=== PATIENT | male | born 1995 | race Caucasian/White ===

== ENCOUNTER 2017-01-17 15:15 | Emergency (ER) | payer BC, OTHER ==
[2017-01-17 15:21] VITALS: BP 136/77
--- NOTE | 2017-01-17 15:28 | EDM.PDOC ---
ED HPI Trauma - General Chief Complaint: Lower Extremity Injury/Pain Stated Complaint: KNEE PAIN Time Seen by Provider: 01/17/17 15:28 Source: Reports: Patient History Limitations: Reports: No limitations - History of Present Illness INITIAL COMMENTS - FREE TEXT/NARRATIVE: History and physical: History of present illness: [Patient comes to the emergency room complaining of right knee pain for the past 3-4 days. 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 he has no previous injury or trauma to his leg. No previous surgeries to his right leg. He hasn't had any twisting injuries that he can remember. He has pain over the superior aspect of his right patella has not noticed any bruising warmth or swelling. No fever or chills. No radiation of pain up or down his legs. He took a couple of ibuprofen at home without improvement in his symptoms. Denies pain to his left leg and knee.. ] Review of Systems: As per history of present illness and below otherwise all systems reviewed and negative. Past medical history: As per history of present illness and as reviewed below otherwise noncontributory. Surgical history: As per history of present illness and is reviewed below other monge noncontributory. Social history: No reported history of drug or alcohol abuse. Family history: As per history of present illness and is reviewed below otherwise noncontributory. Physical exam: HEENT: Atraumatic, normocephalic. Lungs: Clear to auscultation, breath sounds equal bilaterally. No wheezing crackles or rales.. Heart: S1-S2, regular rate and rhythm. Abdomen: Soft, nondistended, nontender. Negative for masses or hepatosplenomegaly. Negative for costovertebral tenderness. Extremities: atraumatic in appearance. he is tender with palpation over thesuperior aspect of his patella. No effusions or swelling is appreciated. No ecchymosis or erythema. negative for cords or calf pain. Neurovascular unremarkable. He has full range of motion. He limps favoring his right leg when he walks. Neuro: Awake, alert, oriented. Motor and sensory unremarkable throughout. Exam nonfocal. Diagnostics: [Right knee x-ray ] Therapeutics: [Toradol 60mg IM] Impression: [Right knee pain ] Plan: [Right knee x-ray appears unremarkable. Awaiting radiologist's report. Discussed with patient that his pain could be related to a muscle strain or sprain and that [id number] analgesics will help. Recommend ice and rest. Elevation as tolerated. Note written excusing from work tomorrow. He should followup with a primary care provider in the next couple of days to determine what next steps need to be taken if his symptoms fail to improve. he is in agreement with today's plan. All of his questions are answered and concerns are addressed.] Definitive disposition and diagnosis is appropriate pending reevaluation and review of above. Allergies/ADRs: Allergies No Known Allergies Allergy (Verified 01/17/17 15:21) Home Medications: Ambulatory Orders Naproxen Sodium [Aleve] 220 mg PO BID PRN 01/17/17 [Confirmed 01/17/17] Past Medical History - Past Health History Medical/Surgical History: Denies Medical/Surgical History Social & Family History - Tobacco Use Smoking Status *Q: Never Smoker Second Hand Smoke Exposure: No - Recreational Drug Use Recreational Drug Use: No Review of Systems - Review of Systems Review Of Systems: ROS reveals no pertinent complaints other than HPI. Trauma Exam - Physical Exam Exam: See Below Course - Vital Signs Last Recorded V/S: Last Vital Signs Temp 98.3 F 01/17/17 15:16 Pulse 90 01/17/17 15:16 Resp 16 01/17/17 15:16 BP 136/77 01/17/17 15:16 Pulse Ox 98 01/17/17 15:16 - Orders/Labs/Meds Orders: Active Orders 24 hr Category Date Time Status Knee 3V Rt [CR] Stat Exams 01/17/17 15:40 Taken Meds: Medications Discontinued Medications Generic Name Dose Route Start Last Admin Trade Name Freq PRN Reason Stop Dose Admin Ketorolac Tromethamine 60 mg 01/17/17 15:59 01/17/17 16:05 Toradol IM 01/17/17 16:00 60 mg ONETIME ONE Administration Departure - Departure Time of Disposition: 16:10 Disposition: Home, Self-Care 01 Condition: good Clinical Impression: Right knee pain Qualifiers: Chronicity: acute Qualified Code(s): M25.561 - Pain in right knee Referrals: Provider,Unknown [Primary Care Provider] - Forms: ED Department Discharge Additional Instructions: The following information is given to patients seen in the emergency department who are being discharged home. This information is to outline your options for follow-up care and provides all patient seen in our emergency department with a follow-up referral. The need for follow-up, as well as the timing and circumstances, are variable depending upon the specifics of each emergency department visit. If you don't have a primary care physician on staff, we will provide you with a referral. We always advise to contact your personal physician following an emergency department visit to inform them of the circumstances of the visit and for follow-up with them and/or the need for any referrals to a consulting specialist. The emergency department will also refer you to a specialist when appropriate. This referral assures that you have the opportunity for follow-up care with a specialist. All of these measures are taken in an effort to provide you with optimal care, which includes your follow-up. Under all circumstances we always encourage you to contact your private physician who remains a resource for coordinating your care. When calling for follow-up care, please make the office aware that this follow-up is from your recent emergency room visit. If for any reason you are refused follow-up please contact the [facility] emergency department at and ask to speak to the emergency department nurse. [facility] [address] [place] [address] Followup with your local primary care provider or at the clinic listed above in 48-72 hours. You may need to see an orthopedist Recommend ice packs and rest your knee. You may alternate 2 tablets of Tylenol with ibuprofen 3-4 tablets every 6-8 hours as needed for pain. Ibuprofen can be hard on the stomach it is recommended that you take it with food. Return to ER as needed as discussed. - My Orders Last 24 Hours: My Active Orders 01/17/17 15:40 Knee 3V Rt [CR] Stat - Assessment/Plan Last 24 Hours: My Active Orders 01/17/17 15:40 Knee 3V Rt [CR] Stat
[2017-01-17] MEDS ORDERED: Ketorolac 60 MG/2 ML SDV IM ONE (15:59)
== END 2017-01-17 16:18 | disposition home or self-care (01) ==
LOC: CC.ED 15:15
DX: M25.561 Pain in right knee (principal)
CPT/HCPCS: 73562; 96372; 99283; J1885

== ENCOUNTER 2020-04-03 23:26 | Emergency (ER) | payer BC, OTHER ==
[2020-04-03 23:45] VITALS: BP 142/80; PULSE 80
--- NOTE | 2020-04-03 23:53 | EDM.PDOC ---
ED HPI GENERAL MEDICAL PROBLEM - General Chief Complaint: General Stated Complaint: throat swelling Time Seen by Provider: 04/03/20 23:52 Source of Information: Reports: Patient History Limitations: Reports: No Limitations - History of Present Illness INITIAL COMMENTS - FREE TEXT/NARRATIVE: Jaylon is a 24 yo male who presents to the ED with c/o feeling like his throat is swollen. He reports this has been ongoing for the past 4-5 days. Was in to see Katharina NEVES in the clinic 2 days ago and was started on amoxicillin for tonsillitis. He reports no improvement in symptoms. Denies any fever, chills, malaise, nasal congestion, nasal drainage, cough, shortness of breath, N/V/D. Reports it feels as though it is hard to swallow and something is stuck in his throat. He feels like his throat is closing, making it difficult to breathe. Denies any abdominal pain. No known history of GERD. No other complaints. Onset: Gradual Onset Date: 03/30/20 Duration: Constant Location: Reports: Neck Severity: Mild Improves with: Reports: None Worsens with: Reports: None Associated Symptoms: Reports: No Other Symptoms. Denies: Confusion, Chest Pain, Cough, cough w sputum, Diaphoresis, Fever/Chills, Headaches, Loss of Appetite, Malaise, Nausea/Vomiting, Rash, Seizure, Shortness of Breath, Syncope, Weakness Treatments [employer]: Reports: Other (see below) (Amoxicillin) Throat Pain Score (Numeric/FACES): 3 - Related Data Allergies Allergy/AdvReac Type Severity Reaction Status Date / Time No Known Allergies Allergy Verified 04/03/20 23:27 Home Meds: Home Meds Amoxicillin [Amoxil] 875 mg PO Q12HR 04/03/20 [History] Pantoprazole Sodium [Protonix] 40 mg PO DAILY #30 tablet. 04/04/20 [Rx] Past Medical History - Past Health History Medical/Surgical History: Denies Medical/Surgical History Social & Family History - Family History Family Medical History: Noncontributory - Tobacco Use Smoking Status *Q: Never Smoker - Caffeine Use Caffeine Use: Reports: Energy Drinks Caffeine Use Comment: drinks one enegy drink every am ED ROS GENERAL - Review of Systems Review Of Systems: Comprehensive ROS is negative, except as noted in HPI. ED EXAM, GENERAL - Physical Exam Exam: See Below Exam Limited By: No Limitations General Appearance: Alert, WD/WN, No Apparent Distress Eye Exam: Bilateral Eye: EOMI, Normal Fundi, Normal Inspection, PERRL Ears: Normal External Exam, Normal Canal, Hearing Grossly Normal, Normal TMs Nose: Normal Inspection, Normal Mucosa, No Blood Throat/Mouth: Normal Inspection, Normal Lips, Normal Teeth, Normal Gums, Normal Oropharynx, Normal Voice, No Airway Compromise Head: Atraumatic, Normocephalic Neck: Normal Inspection, Supple, Non-Tender, Full Range of Motion Respiratory/Chest: No Respiratory Distress, Lungs Clear, Normal Breath Sounds, No Accessory Muscle Use, Chest Non-Tender Cardiovascular: Normal Peripheral Pulses, Regular Rate, Rhythm, No Edema, No Gallop, No JVD, No Murmur, No Rub GI/Abdominal: Normal Bowel Sounds, Soft, Non-Tender, No Organomegaly, No Distention, No Abnormal Bruit, No Mass Back Exam: Normal Inspection, Full Range of Motion, NT Extremities: Normal Inspection, Normal Range of Motion, Non-Tender, Normal Capillary Refill, No Pedal Edema Neurological: Alert, Oriented, CN II-XII Intact, Normal Cognition, Normal Gait, Normal Reflexes, No Motor/Sensory Deficits Psychiatric: Normal Affect, Normal Mood Skin Exam: Warm, Dry, Intact, Normal Color, No Rash Course - Vital Signs Last Recorded V/S: Last Vital Signs Temp 98.7 F 04/03/20 23:33 Pulse 80 04/03/20 23:33 Resp 18 04/03/20 23:33 BP 142/80 H 04/03/20 23:33 Pulse Ox 98 04/03/20 23:33 - Orders/Labs/Meds Labs: Laboratory Tests 04/03/20 Range/Units 23:56 SARS-CoV-2 RNA (RT-PCR) Negative (NEGATIVE) Meds: Medications Discontinued Medications Generic Name Dose Route Start Last Admin Trade Name Freq PRN Reason Stop Dose Admin Pantoprazole Sodium 40 mg 04/04/20 00:07 04/04/20 00:15 Protonix PO 04/04/20 00:08 40 mg STAT STA Administration Departure - Departure Time of Disposition: 00:06 Disposition: Home, Self-Care 01 Condition: Good Clinical Impression: GERD (gastroesophageal reflux disease) Qualifiers: Esophagitis presence: esophagitis presence not specified Qualified Code(s): K21.9 - Gastro-esophageal reflux disease without esophagitis - Discharge Information *PRESCRIPTION DRUG MONITORING PROGRAM REVIEWED*: Not Applicable *COPY OF PRESCRIPTION DRUG MONITORING REPORT IN PATIENT BIANKA: Not Applicable Prescriptions: Pantoprazole Sodium [Protonix] 40 mg PO DAILY #30 tablet. Instructions: Gastroesophageal Reflux Disease, Adult, [id number] Referrals: PCP,None [Primary Care Provider] - Forms: ED Department Discharge Additional Instructions: - Strep and COVID 19 negative - Recommend course of Protonix to see if this alleviates globus sensation - Start Protonix daily - Try to refrain from ibuprofen use - Avoid alcohol, spicy/greasy foods, and caffeine as able - Follow up for recheck if symptoms worsen or do not improve with medication Sepsis Event Note (ED) - Evaluation Sepsis Screening Result: No Definite Risk - Problem List & Annotations (1) Globus sensation SNOMED Code(s): 734561450 Code(s): R09.89 - OTH SYMPTOMS AND SIGNS INVOLVING THE CIRC AND RESP SYSTEMS Status: Acute (2) GERD (gastroesophageal reflux disease) SNOMED Code(s): 477065431 Code(s): K21.9 - GASTRO-ESOPHAGEAL REFLUX DISEASE WITHOUT ESOPHAGITIS Status: Acute Qualifiers: Esophagitis presence: esophagitis presence not specified Qualified Code(s): K21.9 - Gastro-esophageal reflux disease without esophagitis - Assessment/Plan Assessment:: GERD Globus Sensation Plan: 24 yo male presents to ED with c/o feeling like his throat is swelling. Was seen in clinic 2 days prior and started on antibiotics for tonsillitis. Reports no improvement in symptoms and persistent sensation that something is in throat. No known history of GERD. Exam WNL. Patient does have enlarged tonsils, but no erythema or exudate. Breathing without difficulty. Strep and COVID 19 negative. Discussed globus sensation with patient. Will treat for GERD and see if symptoms improve. He is advised to start Protonix daily. Did discuss that it may take a few days before he will notice improvement. He is advised to follow up with his PCP for recheck if symptoms worsen or do not improve. Discussed dietary recommendations for GERD and refraining from NSAID use. Patient discharged from facility in satisfactory condition. Return to ED for emergent needs.
[2020-04-04] MEDS ORDERED: Pantoprazole 40 MG Tab.CR PO STA (00:07)
== END 2020-04-04 00:25 | disposition home or self-care (01) ==
LOC: CC.ED 23:26
DX: K21.9 Gastro-esophageal reflux disease without esophagitis (principal); Z20.828 Contact with and (suspected) exposure to other viral communicable diseases; Z79.899 Other long term (current) drug therapy
CPT/HCPCS: 87430; 99284; A9270-GY; U0002

== ENCOUNTER 2021-02-14 08:32 | Emergency (ER) | payer BC ==
[2021-02-14 08:36] VITALS: BP 152/85; PULSE 80
[2021-02-14 09:25] LABS: CHLORIDE,CL 106 mEq/L (98-106); SODIUM,NA 141 mEq/L (136-145)
--- NOTE | 2021-02-14 09:28 | EDM.PDOC ---
ED HPI GENERAL MEDICAL PROBLEM - General Chief Complaint: General Stated Complaint: Dizziness Time Seen by Provider: 02/14/21 08:50 Source of Information: Reports: Patient History Limitations: Reports: No Limitations - History of Present Illness INITIAL COMMENTS - FREE TEXT/NARRATIVE: Jaylon is a 25 yo male who presents to the ED with c/o not feeling well. He reports starting yesterday evening he has felt dizzy, nauseated, headache and some left upper and lower extremity numbness. Also reports some midepigastric abdominal pain. Describes the dizziness as lightheaded. Reports when he stands he feels like he's going to pass out. Reports he has been eating and drinking without difficulty. Did get the Jonasen covid vaccination on Wednesday, so is anxious regarding this. Onset Date: 02/13/21 Duration: Intermittent Location: Reports: Generalized Associated Symptoms: Reports: Headaches, Malaise, Nausea/Vomiting (nausea, no vomiting). Denies: Confusion, Chest Pain, Cough, cough w sputum, Diaphoresis, Fever/Chills, Loss of Appetite, Weakness - Related Data Allergies Allergy/AdvReac Type Severity Reaction Status Date / Time No Known Allergies Allergy Verified 02/14/21 08:33 Home Meds: Home Meds . [No Known Home Meds] 02/14/21 [History] Past Medical History - Past Health History Medical/Surgical History: Denies Medical/Surgical History Social & Family History - Family History Family Medical History: No Pertinent Family History - Tobacco Use Tobacco Use Status *Q: Never Tobacco User Second Hand Smoke Exposure: No - Caffeine Use Caffeine Use: Reports: Coffee Caffeine Use Comment: drinks one enegy drink every am - Recreational Drug Use Recreational Drug Use: No ED ROS GENERAL - Review of Systems Review Of Systems: Comprehensive ROS is negative, except as noted in HPI. ED EXAM, GENERAL - Physical Exam Exam: See Below Exam Limited By: No Limitations General Appearance: Alert, WD/WN, No Apparent Distress, Anxious Eye Exam: Bilateral Eye: EOMI, Normal Fundi, Normal Inspection, PERRL Throat/Mouth: Normal Inspection, Normal Lips, Normal Teeth, Normal Gums, Normal Oropharynx, Normal Voice, No Airway Compromise Head: Atraumatic, Normocephalic Neck: Normal Inspection, Supple, Non-Tender, Full Range of Motion Respiratory/Chest: No Respiratory Distress, Lungs Clear, Normal Breath Sounds, No Accessory Muscle Use, Chest Non-Tender Cardiovascular: Normal Peripheral Pulses, Regular Rate, Rhythm, No Edema, No Gallop, No JVD, No Murmur, No Rub GI/Abdominal: Normal Bowel Sounds, Soft, Non-Tender, No Organomegaly, No Distention, No Abnormal Bruit, No Mass Back Exam: Normal Inspection, Full Range of Motion, NT Extremities: Normal Inspection, Normal Range of Motion, Non-Tender, Normal Capillary Refill, No Pedal Edema Neurological: Alert, Oriented, Normal Cognition, Normal Gait, No Motor/Sensory Deficits, Other (reports numbness with sharp touch to LUE & LLE) Psychiatric: Anxious Skin Exam: Warm, Dry, Intact, Normal Color, No Rash Course - Vital Signs Last Recorded V/S: Last Vital Signs Temp 97.4 F 02/14/21 08:34 Pulse 80 02/14/21 08:34 Resp 16 02/14/21 08:34 BP 152/85 H 02/14/21 08:34 Pulse Ox 97 02/14/21 08:34 - Orders/Labs/Meds Orders: Active Orders 24 hr Category Date Time Status Head wo Cont [CT] Stat Exams 02/14/21 09:20 Ordered Labs: Laboratory Tests 02/14/21 02/14/21 02/14/21 Range/Units 08:46 08:46 08:46 WBC 4.6 L (5.0-10.0) 10^3/uL RBC 5.13 (4.50-6.00) 10^6/uL Hgb 15.4 (14.0-18.0) g/dL Hct 45.0 (40.0-54.0) % MCV 87.7 (82.0-94.0) fL MCH 30.0 (27.0-32.0) pg MCHC 34.2 (33.0-38.0) g/dL RDW Coeff of Kimberly 14.9 (11.0-15.0) % Plt Count 198 (150-400) 10^3/uL Neut % (Auto) 41.8 (35-85) % Lymph % (Auto) 42.0 (10-55) % Glascock % (Auto) 14.5 (0-16) % Eos % (Auto) 1.3 (0-5) % Baso % (Auto) 0.4 (0-3) % Neut # (Auto) 1.90 (1.80-7.00) 10^3/uL Lymph # (Auto) 1.91 (1.00-4.80) 10^3/uL Glascock # (Auto) 0.66 (0.00-0.80) 10^3/uL Eos # (Auto) 0.06 (0.00-0.45) 10^3/uL Baso # (Auto) 0.02 10^3/uL D-Dimer, Quantitative 0.19 (0.00-0.50) Sodium 141 (136-145) mEq/L Potassium 4.6 (3.5-5.0) mEq/L Chloride 106 (98-106) mEq/L Carbon Dioxide 26 (21-32) mmol/L BUN 18 (7-18) mg/dL Creatinine 1.1 (0.7-1.3) mg/dL Est Cr Clr Drug Dosing 107.44 mL/min Estimated GFR (MDRD) > 60 (>=60) mL/min Glucose 104 H (75-99) mg/dL Calcium 8.1 L (8.4-10.1) mg/dL Total Bilirubin 0.5 (0.0-1.0) mg/dL AST 23 (15-37) U/L ALT 33 (12-78) U/L Alkaline Phosphatase 59 (46-116) U/L C-Reactive Protein 1.4 H (0.2-0.8) mg/dL Total Protein 7.4 (6.4-8.2) g/dL Albumin 3.5 (3.4-5.0) g/dL Urine Color (YELLOW) Urine Appearance (CLEAR) Urine pH (4.5-8.0) Ur Specific Burnett (1.003-1.020) Urine Protein (NEGATIVE) mg/dL Urine Glucose (UA) (NEGATIVE) mg/dL Urine Ketones (NEGATIVE) mg/dL Urine Occult Blood (NEGATIVE) Urine Nitrite (NEGATIVE) Urine Bilirubin (NEGATIVE) Urine Urobilinogen (0.2-1.0) EU/dL Ur Leukocyte Esterase (NEGATIVE) 02/14/21 Range/Units 08:48 WBC (5.0-10.0) 10^3/uL RBC (4.50-6.00) 10^6/uL Hgb (14.0-18.0) g/dL Hct (40.0-54.0) % MCV (82.0-94.0) fL MCH (27.0-32.0) pg MCHC (33.0-38.0) g/dL RDW Coeff of Kimberly (11.0-15.0) % Plt Count (150-400) 10^3/uL Neut % (Auto) (35-85) % Lymph % (Auto) (10-55) % Glascock % (Auto) (0-16) % Eos % (Auto) (0-5) % Baso % (Auto) (0-3) % Neut # (Auto) (1.80-7.00) 10^3/uL Lymph # (Auto) (1.00-4.80) 10^3/uL Glascock # (Auto) (0.00-0.80) 10^3/uL Eos # (Auto) (0.00-0.45) 10^3/uL Baso # (Auto) 10^3/uL D-Dimer, Quantitative (0.00-0.50) Sodium (136-145) mEq/L Potassium (3.5-5.0) mEq/L Chloride (98-106) mEq/L Carbon Dioxide (21-32) mmol/L BUN (7-18) mg/dL Creatinine (0.7-1.3) mg/dL Est Cr Clr Drug Dosing mL/min Estimated GFR (MDRD) (>=60) mL/min Glucose (75-99) mg/dL Calcium (8.4-10.1) mg/dL Total Bilirubin (0.0-1.0) mg/dL AST (15-37) U/L ALT (12-78) U/L Alkaline Phosphatase (46-116) U/L C-Reactive Protein (0.2-0.8) mg/dL Total Protein (6.4-8.2) g/dL Albumin (3.4-5.0) g/dL Urine Color Yellow (YELLOW) Urine Appearance Clear (CLEAR) Urine pH 6.5 (4.5-8.0) Ur Specific Burnett >= 1.030 H (1.003-1.020) Urine Protein Negative (NEGATIVE) mg/dL Urine Glucose (UA) Negative (NEGATIVE) mg/dL Urine Ketones Negative (NEGATIVE) mg/dL Urine Occult Blood Negative (NEGATIVE) Urine Nitrite Negative (NEGATIVE) Urine Bilirubin Negative (NEGATIVE) Urine Urobilinogen 0.2 (0.2-1.0) EU/dL Ur Leukocyte Esterase Negative (NEGATIVE) Departure - Departure Time of Disposition: 10:20 Disposition: Home, Self-Care 01 Condition: Fair Clinical Impression: Viral illness, Dizziness - Discharge Information *PRESCRIPTION DRUG MONITORING PROGRAM REVIEWED*: Not Applicable *COPY OF PRESCRIPTION DRUG MONITORING REPORT IN PATIENT BIANKA: Not Applicable Instructions: Viral Illness, Adult, Dizziness, [id number] Referrals: PCP,Unknown [Primary Care Provider] - Forms: ED Department Discharge Additional Instructions: - Labs all stable - Head CT negative - Rest and push fluids - Routine symptomatic cares - Recommend follow up with PCP for recheck BP - Follow up if symptoms worsen or do not improve - Return to ED for emergent needs Sepsis Event Note (ED) - Evaluation Sepsis Screening Result: No Definite Risk - Focused Exam Vital Signs: Vital Signs Temp Pulse Resp BP Pulse Ox 02/14/21 08:34 97.4 F 80 16 152/85 H 97 - My Orders Last 24 Hours: My Active Orders 02/14/21 09:20 Head wo Cont [CT] Stat - Assessment/Plan Last 24 Hours: My Active Orders 02/14/21 09:20 Head wo Cont [CT] Stat
== END 2021-02-14 10:43 | disposition home or self-care (01) ==
LOC: CC.ED 08:32
DX: R42 Dizziness and giddiness (principal); B34.9 Viral infection, unspecified
CPT/HCPCS: 36415; 70450; 80053; 81003; 85025; 85379; 86140; 99284-25

== ENCOUNTER 2024-07-12 15:20 | Emergency (ER) | payer OTHER ==
[2024-07-12 15:36] VITALS: BP 176/106; PULSE 96
[2024-07-12 16:15] LABS: BASOPHILS ABSOLUTE AUTO 0.04 10^3/uL (0.00-0.50); BASOPHILS PERCENT AUTO 0.6 % (0-1); EOSINOPHILS ABSOLUTE AUTO 0.04 10^3/uL (0.00-1.50); EOSINOPHILS PERCENT AUTO 0.6 % (0-6); HEMATOCRIT 48.3 % (42.0-52.0); IMMATURE GRAN ABSOLUTE AUTO 0.01 10^3/uL (0.00-0.49); IMMATURE GRAN PERCENT AUTO 0.2 % (0.0-4.9); LYMPHOCYTES ABSOLUTE AUTO 1.18 10^3/uL (0.60-5.00); LYMPHOCYTES PERCENT AUTO 18.4 % (24-44); MEAN CORPUSCULAR HEMOGLOBIN 29.5 pg (27.0-32.0); MEAN CORPUSCULAR HGB CONC 33.1 g/dL (32.0-36.0); MONOCYTES ABSOLUTE AUTO 0.42 10^3/uL (0.00-1.50); MONOCYTES PERCENT AUTO 6.6 % (0-10); NEUTROPHILS ABSOLUTE AUTO 4.72 x10^3/uL (1.80-8.00); NEUTROPHILS PERCENT AUTO 73.6 % (41-71); PLATELET COUNT,PLT 230 10^3/uL (150-400); RED BLOOD CELL COUNT 5.43 x10^6/uL (4.50-6.00); WHITE BLOOD CELL COUNT,WBC 6.4 10^3/uL (4.0-11.0)
[2024-07-12 16:19] LABS: APPEARANCE,URINE CLEAR (CLEAR); BILIRUBIN,URINE NEGATIVE (NEGATIVE); COLOR,URINE YELLOW (YELLOW); GLUCOSE,URINE NEGATIVE (NEGATIVE); KETONES,URINE NEGATIVE (NEGATIVE); LEUKOCYTE ESTERASE,URINE NEGATIVE (NEGATIVE); NITRITE,URINE NEGATIVE (NEGATIVE); OCCULT BLOOD,URINE TRACE-INTACT (NEGATIVE); PROTEIN,URINE NEGATIVE (NEGATIVE); UROBILINOGEN,URINE 0.2 EU/dL (0.2-1.0)
[2024-07-12 16:30] LABS: RBC,URINE NOT SEEN /HPF (0-5); WBC,URINE NOT SEEN /HPF (0-5)
[2024-07-12 16:39] LABS: ALANINE AMINOTRANSFERASE,ALT 34 U/L (12-78); ALBUMIN 4.1 g/dL (3.4-5.0); ALKALINE PHOSPHATASE 62 U/L (46-116); ASPARTATE AMNIOTRANSFERASE,AST 29 U/L (15-37); BILIRUBIN TOTAL 0.8 mg/dL (0.0-1.0); BLOOD UREA NITROGEN,BUN 11 mg/dL (7-18); CALCIUM 9.3 mg/dL (8.4-10.1); CARBON DIOXIDE,CO2 29 mmol/L (21-32); CHLORIDE,CL 104 mEq/L (98-106); CREATININE 1.1 mg/dL (0.7-1.3); EST CRCL DRUG DOSING (CG) 107.78 mL/min; GLUCOSE RANDOM 98 mg/dL (75-99); POTASSIUM,K 4.3 mEq/L (3.5-5.0); PROTEIN TOTAL,TP 7.8 g/dL (6.4-8.2); SODIUM,NA 141 mEq/L (136-145)
[2024-07-12 16:41] LABS: ESTIMATED GFR 93 mL/min (>=60)
== END 2024-07-12 16:50 | disposition home or self-care (01) ==
LOC: CC.ED 15:20
DX: R42 Dizziness and giddiness (principal); I10 Essential (primary) hypertension; F17.210 Nicotine dependence, cigarettes, uncomplicated; Z79.899 Other long term (current) drug therapy
CPT/HCPCS: 36415; 80053; 81001; 83735; 84443; 84484; 85025; 87428-QW; 93005; 93010; 93246; 99284

== ENCOUNTER 2025-05-08 03:42 | Emergency (ER) | payer OTHER ==
[2025-05-08 04:30] LABS: BASOPHILS ABSOLUTE AUTO 0.04 10^3/uL (0.00-0.50); BASOPHILS PERCENT AUTO 0.6 % (0-1); EOSINOPHILS ABSOLUTE AUTO 0.06 10^3/uL (0.00-1.50); EOSINOPHILS PERCENT AUTO 1.0 % (0-6); IMMATURE GRAN ABSOLUTE AUTO 0.01 10^3/uL (0.00-0.49); IMMATURE GRAN PERCENT AUTO 0.2 % (0.0-4.9); LYMPHOCYTES ABSOLUTE AUTO 2.85 10^3/uL (0.60-5.00); LYMPHOCYTES PERCENT AUTO 45.6 % (24-44); MONOCYTES ABSOLUTE AUTO 0.46 10^3/uL (0.00-1.50); MONOCYTES PERCENT AUTO 7.4 % (0-10); NEUTROPHILS ABSOLUTE AUTO 2.83 x10^3/uL (1.80-8.00); NEUTROPHILS PERCENT AUTO 45.2 % (41-71); PLATELET COUNT,PLT 229 10^3/uL (150-400); RED BLOOD CELL COUNT 5.22 x10^6/uL (4.50-6.00); WHITE BLOOD CELL COUNT,WBC 6.3 10^3/uL (4.0-11.0)
[2025-05-08 04:43] LABS: ALANINE AMINOTRANSFERASE,ALT 39 U/L (12-78); ASPARTATE AMNIOTRANSFERASE,AST 30 U/L (15-37); BILIRUBIN TOTAL 0.9 mg/dL (0.0-1.0); BLOOD UREA NITROGEN,BUN 17 mg/dL (7-18); CARBON DIOXIDE,CO2 28 mmol/L (21-32); CHLORIDE,CL 102 mEq/L (98-106); CREATININE 1.2 mg/dL (0.7-1.3); EST CRCL DRUG DOSING (CG) 95.00 mL/min; ESTIMATED GFR 83 mL/min (>=60); GLUCOSE RANDOM 103 mg/dL (75-99); POTASSIUM,K 3.8 mEq/L (3.5-5.0); PROTEIN TOTAL,TP 7.6 g/dL (6.4-8.2); SODIUM,NA 139 mEq/L (136-145)
[2025-05-08 05:14] VITALS: BP 113/62; PULSE 64
== END 2025-05-08 05:15 | disposition home or self-care (01) ==
LOC: CC.ED 03:42
DX: R07.89 Other chest pain (principal); I10 Essential (primary) hypertension; Z79.899 Other long term (current) drug therapy
CPT/HCPCS: 36415; 71046; 80053; 83735; 84484; 85025; 86140; 93005; 99285; A9270-GY